=== PATIENT | female | born 1945 | race Asian ===

== ENCOUNTER 2022-10-08 14:50 | Emergency (ER) | payer OTHER ==
[~2022-10-08] VITALS: Ht 154.9 cm; Wt 49.0 kg
--- NOTE | 2022-10-08 16:30 | NUR ---
No obvious distress. Await disposition
[2022-10-08 17:06] VITALS: BP 127/69
--- NOTE | 2022-10-08 17:08 | NUR ---
Patient discharged to home in stable condition. Written and verbal after care instructions given. Patient verbalizes understanding of instruction.
== END 2022-10-08 17:09 | disposition home or self-care (01) ==
LOC: ER 14:55
DX: M54.6 Pain in thoracic spine (principal); I10 Essential (primary) hypertension; V49.60XA Unspecified car occupant injured in collision with unspecified motor vehicles in traffic accident, initial encounter; Y93.89 Activity, other specified; Y92.89 Other specified places as the place of occurrence of the external cause; Y99.8 Other external cause status
CPT/HCPCS: 71045-TC